=== PATIENT | female | born 1965 | race Caucasian/White ===

== ENCOUNTER → 2024-05-15 14:01 | Outpatient (REF) | payer OTHER, SELFPAY | LOC: HWRAD 14:01 | PROVIDERS: ATTENDING PHYSICIAN Nurse Practitioner Primary Care | DX: R22.2 Localized swelling, mass and lump, trunk (principal) | CPT/HCPCS: 76604 ==

== ENCOUNTER → 2024-11-16 09:10 | Outpatient (REF) | payer OTHER, SELFPAY | LOC: HWWDC 09:10 | PROVIDERS: ATTENDING PHYSICIAN Nurse Practitioner Women's Health; FAMILY PHYSICIAN Nurse Practitioner Primary Care | DX: Z12.31 Encounter for screening mammogram for malignant neoplasm of breast (principal) | CPT/HCPCS: 77063; 77067 ==

== ENCOUNTER 2025-08-24 15:48 | Emergency (ER) | payer OTHER, SELFPAY ==
[2025-08-24 15:50] VITALS: BP 155/86
[2025-08-24] MEDS: KEFLEX 500 MG PO (19:26)
[2025-08-24] MEDS: ADACEL 0.5 ML IM (19:27)
--- NOTE | 2025-08-24 19:27 | ED.GENMED ---
History of Present Illness
General
Chief Complaint: Foreign Body Removal
Source: patient and spouse
Exam Limitations: none
Time Seen by Provider: 08/24/25 18:05
Nursing documentation reviewed up to this point in time: agreed with
History of Present Illness
History of Present Illness:
59-year-old female presenting to the emergency department today with concerns of a foreign body in her right index finger when a glass broke and went into her finger 4 days ago. Went to urgent care where they had to do partial removal and sent her
to the ER to complete it. She is unsure when her last tetanus shot was and she has not been on antibiotics. She denies any numbness or weakness.
Past History
Past History
ED Past Medical History: None
ED Past Surgical History: None
Social History
Tobacco: Non-smoker
Alcohol: None
Drug: None
Personal:
Review of Systems
Review of Systems
Allergies reviewed?: Yes
All Other Systems: ROS reviewed and negative except as documented in HPI and ROS
Phy Exam
Physical Exam
Physical Exam:
GENERAL: Alert , in no apparent distress
EYE: pupils equal and reactive
NECK: Supple, no significant adenopathy.
ENT: o/p clr, mmm.
CARDIAC: Regular rate and rhythm .
LUNGS: Clear breath sounds bilaterally, no acute respiratory distress, no wheezes/rales/rhonchi
ABDOMEN: Soft, without focal tenderness, no r/g, no cvat
NEUROLOGICAL: Alert and oriented, no focal neuro deficits
SKIN: Palmar aspect of the distal right index finger small puncture wound. No readily visible foreign body seen with brief inspection. Warm and dry, skin intact.
MUSCULOSKELETAL: No edema, well perfused.
PSYCH: Normal and appropriate interaction.
Course
Orders/Labs/Results
Orders:
Orders
08/24/25 19:21
Cephalexin Monohydrate [Keflex] 500 mg PO NOW STA
Tetanus/Diphth/Acelpertussis [Adacel] 0.5 ml IM .ONCE ONE
Vital Signs
Initial and Last Documented VS:
Initial Vital Signs
Temp Pulse Resp BP Pulse Ox
98.2 F 98 20 155/86 99
08/24/25 15:50 08/24/25 15:50 08/24/25 15:50 08/24/25 15:50 08/24/25 15:50
Last Documented Vital Signs
Temp Pulse Resp BP Pulse Ox
98.2 F 98 20 155/86 99
08/24/25 15:50 08/24/25 15:50 08/24/25 15:50 08/24/25 15:50 08/24/25 15:50
Procedures
Foreign Body Removal-Skin
Wound explored and foreign body removed?: Yes
Anesthesia: other (Digital block 1% lidocaine)
Foreign body removed using: forceps
Foreign body removed: completely
MDM/Problems Addressed
MDM/Problems Addressed:
59-year-old female presenting to the emergency department concerns of glass foreign body to his finger. This was anesthetized and removed. No complications tolerated well. Started on antibiotics due to instrumentation and foreign body, also given
a dose of tetanus prophylaxis. Otherwise stable for discharge return precautions given.
*Pulse Oximetry
SaO2: 99
Patient hypoxic: no (99)
*Critical Care Note
Total Time (30-74mins, 75-104mins- exclusive of procedures): Not Applicable
ED Attending Note
-
Portions of this chart may have been created with voice recognition software.� Occasional wrong word or��sound alike� substitutions may have occurred due to the inherent limitations of voice recognition software.
Discharge Plan
Departure
Patient Disposition: Home (Routine Discharge)
Date of Disposition: 08/24/25
Time of Disposition: 19:30
Patient with high blood pressure during this ER visit?: No
Condition: Good
Covid-19: Not Applicable
Discharge Problem:
Foreign body finger
Instructions: Foreign Body in Skin (DC)
Prescriptions:
New
cephalexin 500 mg capsule
500 mg PO TID 3 Days Qty: 9 0RF
No Action
ergocalciferol (vitamin D2) 400 UNIT tablet
400 unit PO DAILY
vitamin B complex 1 EACH tablet
1 ea PO DAILY
albuterol sulfate 1 PUFF HFA aerosol inhaler
2 puff inhalation BID
beclomethasone dipropionate [Qvar] 8.7 GM aerosol
2 puff IH BID
L.acidoph,paracasei,B.animalis 1 EACH capsule
1 ea PO DAILY
Chromium
2 tab PO DAILY
prednisone 10 MG tablet
10 mg PO DAILY Qty: 36 0RF
Rx Instructions:
Please take 6 tablets days 1-3, 4 tablets days 4-6, 2 tablets days 7-8, and 1 tablet days 9-10
Referrals:
Betty Peralta CRNP [Family Provider, Internal Medicine]
Ralph Johnson MD [Active, Orthopedics] - Follow up in 5-7 days
Activity Restrictions/Additional Instructions:
You came to the emergency department today with concerns of foreign body to your finger. This was removed here. Please keep the area clean covered take the prophylactic antibiotic and follow-up closely as an outpatient. Return for any worsening,
new or concerning symptoms.
Interventions
Interventions:
*Risk Screen - Suicide Last Done: 08/24/25 15:53
*General Assessment Last Done: 08/24/25 15:53
*Neglect/Abuse Screening Last Done: 08/24/25 15:53
*ED COVID-19 Vaccine History Last Done: 08/24/25 15:53
*ED Influenza Vaccine History Last Done: 08/24/25 15:53
Discharge Date and Time
Print Language: PARAGUAYAN
== END 2025-08-24 19:37 | disposition home or self-care (01) ==
LOC: EMR 15:48
PROVIDERS: EMERGENCY PHYSICIAN Emergency Medicine; FAMILY PHYSICIAN Nurse Practitioner Primary Care
DX: S61.240A Puncture wound with foreign body of right index finger without damage to nail, initial encounter (principal); Z23 Encounter for immunization; W25.XXXA Contact with sharp glass, initial encounter; W45.8XXA Other foreign body or object entering through skin, initial encounter
CPT/HCPCS: 99283; 10120; 90471; 90715